=== PATIENT | male | born 1960 | race Caucasian/White ===

== ENCOUNTER 2019-06-06 09:08 | Day surgery (SDC) | payer OTHER ==
[~2019-06-06] VITALS: Ht 188 cm; Wt 80.3 kg
[2019-06-06] MEDS ORDERED: fentaNYL 0.05 MG/ML VIAL ONE (12:36)
[2019-06-06] MEDS ORDERED: MIDAZOLAM 2 MG/2 ML VIAL ONE ×2 (12:36→12:53)
[2019-06-06] MEDS ORDERED: LIDOCAINE 2% 100 MG/5 ML UJET TP ONE (12:36)
== END 2019-06-06 14:08 | disposition home or self-care (01) ==
LOC: MDS 09:08 → MMU 09:10 → MDS 14:08
PROVIDERS: ATTEND Internal Medicine Gastroenterology
DX: Z12.11 Encounter for screening for malignant neoplasm of colon (principal); D12.3 Benign neoplasm of transverse colon; K20.9 Esophagitis, unspecified; Z80.0 Family history of malignant neoplasm of digestive organs; F17.200 Nicotine dependence, unspecified, uncomplicated; Z79.82 Long term (current) use of aspirin; Z79.899 Other long term (current) drug therapy
CPT/HCPCS: 36415; 43239; 45385; 86677; J2250; J3010; J7030

== ENCOUNTER 2020-07-16 09:13 | Day surgery (SDC) | payer OTHER, SELFPAY ==
[~2020-07-16] VITALS: Ht 188 cm; Wt 90.7 kg
[2020-07-16] MEDS ORDERED: fentaNYL citrate 0.05 MG/ML VIAL ONE (11:50)
[2020-07-16] MEDS ORDERED: MIDAZOLAM 2 MG/2 ML VIAL ONE ×2 (11:50)
[2020-07-16] MEDS ORDERED: MIDAZOLAM 2 MG/2 ML VIAL IVP ONE (12:10)
== END 2020-07-16 12:40 | disposition home or self-care (01) ==
LOC: MDS 09:13 → MFCC 11:22 → MDS 12:40
PROVIDERS: ATTEND Internal Medicine Gastroenterology
DX: R14.0 Abdominal distension (gaseous) (principal); K21.9 Gastro-esophageal reflux disease without esophagitis; K22.2 Esophageal obstruction; Z11.59 Encounter for screening for other viral diseases; Z79.82 Long term (current) use of aspirin; Z79.899 Other long term (current) drug therapy; F17.210 Nicotine dependence, cigarettes, uncomplicated
CPT/HCPCS: 36415; 43239; 86677; J2250; U0003; J3010